=== PATIENT | male | born 1955 | race Caucasian/White ===

== ENCOUNTER → 2018-04-27 | Outpatient (CLI) | payer BC ==
[~2018-04-27] MED LIST: PROHANCE 279.3MG/ML 15ML VIAL (A9576) As Ordered; PROHANCE 279.3MG/ML 5ML VIAL (A9576) As Ordered
== END ==
LOC: M RAD 14:46
DX: N50.89 Other specified disorders of the male genital organs (principal); N40.2 Nodular prostate without lower urinary tract symptoms
CPT/HCPCS: A9576

== ENCOUNTER 2020-08-06 06:52 | Outpatient (CLI) | payer BC, MEDICARE ==
[2020-08-06] VITALS (7 sets, daily range): BP systolic 135–154; BP diastolic 71–82
[~2020-08-06] VITALS: Ht 175.3 cm; Wt 102.0 kg
[2020-08-06] MEDS ORDERED: diphenhydrAMINE 50MG/ML VIAL (J1200) IV PRN (07:05)
[2020-08-06] MEDS ORDERED: PROMETHAZINE 25 MG TAB PO PRN (07:05)
[2020-08-06] MEDS ORDERED: ONDANSETRON 4MG/2ML VIAL IV PRN (07:05)
[2020-08-06] MEDS ORDERED: methylPREDNISolone 125MG 2ML VIAL IV PRN (07:05)
[2020-08-06] MEDS ORDERED: ALBUTEROL SULFATE 2.5 MG/0.5 ML INH NEB SOLN INH PRN (07:10)
[2020-08-06] MEDS ORDERED: EPINEPHrine INJ 1 MG/ML 1ML AMP IM PRN (07:10)
[2020-08-06] MEDS ORDERED: FOLI1TAB11 PO (07:13)
[2020-08-06] MEDS ORDERED: PRED20TA PO (07:13)
[2020-08-06] MEDS ORDERED: ACET-838 PO (07:13)
[2020-08-06] MEDS ORDERED: ACETAMINOPHEN TAB 650MG DOSE (2X325MG) PO ONE (07:30)
[2020-08-06] MEDS ORDERED: IMMUNE GLOBULIN 10% 20 GM in IV 1 EA IV ONE (07:30)
[2020-08-06] MEDS ORDERED: diphenhydrAMINE 50MG/ML VIAL (J1200) IV ONE (07:30)
[2020-08-06] MEDS ORDERED: IMMUNE GLOBULIN 10% 80 GM in IV 1 EA IV ONE (07:30)
== END 2020-08-06 12:30 | disposition home or self-care (01) ==
LOC: M INFU 06:52
PROVIDERS: ATTEND Internal Medicine
DX: M33.90 Dermatopolymyositis, unspecified, organ involvement unspecified (principal)
CPT/HCPCS: 96365; 96366; J1459

== ENCOUNTER 2020-08-07 07:04 | Outpatient (CLI) | payer BC, MEDICARE ==
[2020-08-07] VITALS (8 sets, daily range): BP systolic 143–176; BP diastolic 72–93
[~2020-08-07] VITALS: Ht 175.3 cm; Wt 102.0 kg
[~2020-08-07 07:04] MED LIST changes: +ACET-838 PO; +FOLI1TAB11 PO; +PRED20TA PO; -PROHANCE 279.3MG/ML 15ML VIAL (A9576) As Ordered; -PROHANCE 279.3MG/ML 5ML VIAL (A9576) As Ordered
[2020-08-07] MEDS ORDERED: ONDANSETRON 4MG/2ML VIAL IV PRN (07:30)
[2020-08-07] MEDS ORDERED: PROMETHAZINE 25 MG TAB PO PRN (07:30)
[2020-08-07] MEDS ORDERED: diphenhydrAMINE 50MG/ML VIAL (J1200) IV PRN (07:30)
[2020-08-07] MEDS ORDERED: methylPREDNISolone 125MG 2ML VIAL IV PRN (07:30)
[2020-08-07] MEDS ORDERED: ACETAMINOPHEN TAB 650MG DOSE (2X325MG) PO ONE (07:30)
[2020-08-07] MEDS ORDERED: ALBUTEROL SULFATE 2.5 MG/0.5 ML INH NEB SOLN INH PRN (07:30)
[2020-08-07] MEDS ORDERED: IMMUNE GLOBULIN 10% 20 GM in IV 1 EA IV ONE (07:30)
[2020-08-07] MEDS ORDERED: diphenhydrAMINE 50MG/ML VIAL (J1200) IV ONE (07:30)
[2020-08-07] MEDS ORDERED: IMMUNE GLOBULIN 10% 80 GM in IV 1 EA IV ONE (07:30)
[2020-08-07] MEDS ORDERED: EPINEPHrine INJ 1 MG/ML 1ML AMP IM PRN (07:30)
== END 2020-08-07 12:45 | disposition home or self-care (01) ==
LOC: M INFU 07:04
PROVIDERS: ATTEND Internal Medicine
DX: M33.90 Dermatopolymyositis, unspecified, organ involvement unspecified (principal)
CPT/HCPCS: 96365; 96366; J1459

== ENCOUNTER 2020-09-03 07:08 | Outpatient (CLI) | payer BC, MEDICARE ==
[2020-09-03] VITALS (7 sets, daily range): BP systolic 130–167; BP diastolic 66–88
[~2020-09-03] VITALS: Ht 175.3 cm; Wt 100.0 kg
[~2020-09-03 07:08] MED LIST changes: -ACET-838 PO; +ACET32TAB PO; +diphenhydrAMINE 50MG/ML VIAL (J1200) IV PRN; +methylPREDNISolone 125MG 2ML VIAL IV PRN
[2020-09-03] MEDS ORDERED: ACETAMINOPHEN TAB 650MG DOSE (2X325MG) PO ONE (07:30)
[2020-09-03] MEDS ORDERED: diphenhydrAMINE 50MG/ML VIAL (J1200) IV ONE (07:30)
[2020-09-03] MEDS ORDERED: PROMETHAZINE 25 MG TAB PO PRN (07:30)
[2020-09-03] MEDS ORDERED: ALBUTEROL SULFATE 2.5 MG/0.5 ML INH NEB SOLN INH PRN (07:30)
[2020-09-03] MEDS ORDERED: ONDANSETRON 4MG/2ML VIAL IV PRN (07:30)
[2020-09-03] MEDS ORDERED: IMMUNE GLOBULIN 10% 20 GM in IV 1 EA IV ONE (07:30)
[2020-09-03] MEDS ORDERED: EPINEPHrine INJ 1 MG/ML 1ML AMP IM PRN (07:30)
[2020-09-03] MEDS ORDERED: IMMUNE GLOBULIN 10% 80 GM in IV 1 EA IV ONE (07:30)
== END 2020-09-03 12:50 | disposition home or self-care (01) ==
LOC: M INFU 07:08
PROVIDERS: ATTEND Internal Medicine
DX: M33.90 Dermatopolymyositis, unspecified, organ involvement unspecified (principal)
CPT/HCPCS: 96365; 96366; J1459

== ENCOUNTER 2020-09-04 07:11 | Outpatient (CLI) | payer BC, MEDICARE ==
[~2020-09-04] VITALS: Ht 175.3 cm; Wt 102.0 kg
[2020-09-04] VITALS (7 sets, daily range): BP systolic 151–181; BP diastolic 76–90
[~2020-09-04 07:11] MED LIST changes: +ALBUTEROL SULFATE 2.5 MG/0.5 ML INH NEB SOLN INH PRN; +EPINEPHrine INJ 1 MG/ML 1ML AMP IM PRN; +ONDANSETRON 4MG/2ML VIAL IV PRN; +PROMETHAZINE 25 MG TAB PO PRN
[2020-09-04] MEDS ORDERED: diphenhydrAMINE 50MG/ML VIAL (J1200) IV ONE (07:30)
[2020-09-04] MEDS ORDERED: ACETAMINOPHEN TAB 650MG DOSE (2X325MG) PO ONE (07:30)
[2020-09-04] MEDS ORDERED: IMMUNE GLOBULIN 10% 20 GM in IV 1 EA IV ONE (07:30)
[2020-09-04] MEDS ORDERED: IMMUNE GLOBULIN 10% 80 GM in IV 1 EA IV ONE (07:30)
== END 2020-09-04 13:00 | disposition home or self-care (01) ==
LOC: M INFU 07:11
PROVIDERS: ATTEND Internal Medicine
DX: M33.90 Dermatopolymyositis, unspecified, organ involvement unspecified (principal)
CPT/HCPCS: 96365; 96366; J1459

== ENCOUNTER 2020-10-01 07:21 | Outpatient (CLI) | payer BC, MEDICARE ==
[~2020-10-01] VITALS: Ht 175.3 cm; Wt 102.0 kg
[~2020-10-01 07:21] MED LIST changes: +ACETAMINOPHEN TAB 650MG DOSE (2X325MG) PO ONE; -ALBUTEROL SULFATE 2.5 MG/0.5 ML INH NEB SOLN INH PRN; -ONDANSETRON 4MG/2ML VIAL IV PRN; -PROMETHAZINE 25 MG TAB PO PRN; +diphenhydrAMINE 50MG/ML VIAL (J1200) IV ONE; -diphenhydrAMINE 50MG/ML VIAL (J1200) IV PRN; -methylPREDNISolone 125MG 2ML VIAL IV PRN
[2020-10-01] MEDS ORDERED: IMMUNE GLOBULIN 10% 20 GM in IV 1 EA IV ONE (07:30)
[2020-10-01] MEDS ORDERED: methylPREDNISolone 125MG 2ML VIAL IV PRN (07:30)
[2020-10-01] MEDS ORDERED: IMMUNE GLOBULIN 10% 80 GM in IV 1 EA IV ONE (07:30)
[2020-10-01] MEDS ORDERED: diphenhydrAMINE 50MG/ML VIAL (J1200) IV PRN (07:30)
[2020-10-01] MEDS ORDERED: ALBUTEROL SULFATE 2.5 MG/0.5 ML INH NEB SOLN INH PRN (07:30)
[2020-10-01] MEDS ORDERED: PROMETHAZINE 25 MG TAB PO PRN (07:30)
[2020-10-01] MEDS ORDERED: ONDANSETRON 4MG/2ML VIAL IV PRN (07:30)
[2020-10-01 07:43] VITALS: BP 163/90
[2020-10-01 08:15] VITALS: BP 154/86
[2020-10-01 08:45] VITALS: BP 142/78
[2020-10-01 09:15] VITALS: BP 144/84
[2020-10-01 13:30] VITALS: BP 130/95
== END 2020-10-01 13:30 | disposition home or self-care (01) ==
LOC: M INFU 07:21
PROVIDERS: ATTEND Internal Medicine
DX: M33.90 Dermatopolymyositis, unspecified, organ involvement unspecified (principal)
CPT/HCPCS: 96365; 96366; J1459

== ENCOUNTER 2020-10-02 07:16 | Outpatient (CLI) | payer BC, MEDICARE ==
[~2020-10-02] VITALS: Ht 175.3 cm; Wt 100.0 kg
[~2020-10-02 07:16] MED LIST changes: -ACETAMINOPHEN TAB 650MG DOSE (2X325MG) PO ONE; +ACETAMINOPHEN TAB 650MG DOSE (2X325MG) PO SCH; -diphenhydrAMINE 50MG/ML VIAL (J1200) IV ONE; +diphenhydrAMINE 50MG/ML VIAL (J1200) IV PRN; +methylPREDNISolone 125MG 2ML VIAL IV PRN
[2020-10-02 07:20] VITALS: BP 160/86
[2020-10-02] MEDS ORDERED: IMMUNE GLOBULIN 10% 80 GM in IV 1 EA IV ONE (07:30)
[2020-10-02] MEDS ORDERED: diphenhydrAMINE 50MG/ML VIAL (J1200) IV ONE (07:30)
[2020-10-02] MEDS ORDERED: PROMETHAZINE 25 MG TAB PO PRN (07:30)
[2020-10-02] MEDS ORDERED: ALBUTEROL SULFATE 2.5 MG/0.5 ML INH NEB SOLN INH PRN (07:30)
[2020-10-02] MEDS ORDERED: IMMUNE GLOBULIN 10% 20 GM in IV 1 EA IV ONE (07:30)
[2020-10-02] MEDS ORDERED: ONDANSETRON 4MG/2ML VIAL IV PRN (07:30)
[2020-10-02 07:56] VITALS: BP 155/78
[2020-10-02 08:33] VITALS: BP 140/81
[2020-10-02 10:32] VITALS: BP 158/82
[2020-10-02 13:36] VITALS: BP 149/87
== END 2020-10-02 13:40 | disposition home or self-care (01) ==
LOC: M INFU 07:16
PROVIDERS: ATTEND Internal Medicine
DX: M33.90 Dermatopolymyositis, unspecified, organ involvement unspecified (principal)
CPT/HCPCS: 96365; 96366; J1459

== ENCOUNTER 2020-10-13 07:38 | Outpatient (CLI) | payer BC, MEDICARE ==
[~2020-10-13] VITALS: Ht 175.3 cm; Wt 101.8 kg
[~2020-10-13 07:38] MED LIST changes: -ACETAMINOPHEN TAB 650MG DOSE (2X325MG) PO SCH; -EPINEPHrine INJ 1 MG/ML 1ML AMP IM PRN; +ZOLEDRONIC ACID 5 MG in IV 1 EA IV ONE; -diphenhydrAMINE 50MG/ML VIAL (J1200) IV PRN; -methylPREDNISolone 125MG 2ML VIAL IV PRN
[2020-10-13 07:54] VITALS: BP 165/70
[2020-10-13] MEDS ORDERED: ZOLEDRONIC ACID 5 MG in IV 1 EA IV ONE (08:00)
[2020-10-13 08:20] VITALS: BP 171/74
== END 2020-10-13 08:20 | disposition home or self-care (01) ==
LOC: M INFU 07:38
PROVIDERS: ATTEND Internal Medicine
DX: M81.0 Age-related osteoporosis without current pathological fracture (principal)
CPT/HCPCS: 96365; J3489

== ENCOUNTER 2020-10-29 07:15 | Outpatient (CLI) | payer BC, MEDICARE ==
[~2020-10-29] VITALS: Ht 175.3 cm; Wt 102.0 kg
[2020-10-29 07:15] VITALS: BP 145/75
[~2020-10-29 07:15] MED LIST changes: -ZOLEDRONIC ACID 5 MG in IV 1 EA IV ONE
[2020-10-29] MEDS ORDERED: ACETAMINOPHEN TAB 650MG DOSE (2X325MG) PO ONE (07:30)
[2020-10-29] MEDS ORDERED: diphenhydrAMINE 50MG/ML VIAL (J1200) IV ONE (07:30)
[2020-10-29] MEDS ORDERED: ONDANSETRON 4MG/2ML VIAL IV PRN (08:00)
[2020-10-29] MEDS ORDERED: PROMETHAZINE 25 MG TAB PO PRN (08:00)
[2020-10-29] MEDS ORDERED: EPINEPHrine INJ 1 MG/ML 1ML AMP IM PRN (08:00)
[2020-10-29] MEDS ORDERED: ALBUTEROL SULFATE 2.5 MG/0.5 ML INH NEB SOLN INH PRN (08:00)
[2020-10-29] MEDS ORDERED: IMMUNE GLOBULIN 10% 20 GM in IV 1 EA IV ONE (08:00)
[2020-10-29] MEDS ORDERED: diphenhydrAMINE 50MG/ML VIAL (J1200) IV PRN (08:00)
[2020-10-29] MEDS ORDERED: IMMUNE GLOBULIN 10% 80 GM in IV 1 EA IV ONE (08:00)
[2020-10-29] MEDS ORDERED: methylPREDNISolone 125MG 2ML VIAL IV PRN (08:00)
[2020-10-29 08:15] VITALS: BP 138/71
[2020-10-29 08:44] VITALS: BP 134/73
[2020-10-29 10:15] VITALS: BP 128/68
[2020-10-29 13:17] VITALS: BP 155/81
== END 2020-10-29 13:10 | disposition home or self-care (01) ==
LOC: M INFU 07:15
PROVIDERS: ATTEND Internal Medicine
DX: M33.10 Other dermatomyositis, organ involvement unspecified (principal)
CPT/HCPCS: 96365; 96366; J1459

== ENCOUNTER 2020-10-30 07:16 | Outpatient (CLI) | payer BC, MEDICARE ==
[~2020-10-30] VITALS: Ht 175.3 cm; Wt 102.0 kg
[2020-10-30 07:20] VITALS: BP 157/76
[2020-10-30] MEDS ORDERED: diphenhydrAMINE 50MG/ML VIAL (J1200) IV ONE (07:30)
[2020-10-30] MEDS ORDERED: ACETAMINOPHEN TAB 650MG DOSE (2X325MG) PO ONE (07:30)
[2020-10-30] MEDS ORDERED: methylPREDNISolone 125MG 2ML VIAL IV PRN (07:30)
[2020-10-30] MEDS ORDERED: EPINEPHrine INJ 1 MG/ML 1ML AMP IM PRN (07:30)
[2020-10-30] MEDS ORDERED: PROMETHAZINE 25 MG TAB PO PRN (07:30)
[2020-10-30] MEDS ORDERED: IMMUNE GLOBULIN 10% 80 GM in IV 1 EA IV ONE (07:30)
[2020-10-30] MEDS ORDERED: ONDANSETRON 4MG/2ML VIAL IV PRN (07:30)
[2020-10-30] MEDS ORDERED: ALBUTEROL SULFATE 2.5 MG/0.5 ML INH NEB SOLN INH PRN (07:30)
[2020-10-30] MEDS ORDERED: diphenhydrAMINE 50MG/ML VIAL (J1200) IV PRN (07:30)
[2020-10-30] MEDS ORDERED: IMMUNE GLOBULIN 10% 20 GM in IV 1 EA IV ONE (07:30)
[2020-10-30 08:00] VITALS: BP 159/77
[2020-10-30 08:30] VITALS: BP 155/73
[2020-10-30 08:53] VITALS: BP 150/68
[2020-10-30 10:10] VITALS: BP 147/76
[2020-10-30 12:49] VITALS: BP 148/88
== END 2020-10-30 12:50 | disposition home or self-care (01) ==
LOC: M INFU 07:16
PROVIDERS: ATTEND Internal Medicine
DX: M33.10 Other dermatomyositis, organ involvement unspecified (principal)
CPT/HCPCS: 96365; 96366; J1459

== ENCOUNTER 2020-11-26 07:23 | Outpatient (CLI) | payer BC, MEDICARE ==
[2020-11-26] VITALS (7 sets, daily range): BP systolic 136–167; BP diastolic 68–81
[~2020-11-26] VITALS: Ht 175.3 cm; Wt 102.0 kg
[~2020-11-26 07:23] MED LIST changes: +ACETAMINOPHEN TAB 650MG DOSE (2X325MG) PO ONE; +PROMETHAZINE 25 MG TAB PO PRN; +diphenhydrAMINE 50MG/ML VIAL (J1200) IV ONE; +diphenhydrAMINE 50MG/ML VIAL (J1200) IV PRN; +methylPREDNISolone 125MG 2ML VIAL IV PRN
[2020-11-26] MEDS ORDERED: IMMUNE GLOBULIN 10% 80 GM in IV 1 EA IV ONE (07:30)
[2020-11-26] MEDS ORDERED: IMMUNE GLOBULIN 10% 20 GM in IV 1 EA IV ONE (07:30)
[2020-11-26] MEDS ORDERED: EPINEPHrine INJ 1 MG/ML 1ML AMP IM PRN (07:30)
[2020-11-26] MEDS ORDERED: ONDANSETRON 4MG/2ML VIAL IV PRN (07:30)
[2020-11-26] MEDS ORDERED: ALBUTEROL SULFATE 2.5 MG/0.5 ML INH NEB SOLN INH PRN (08:00)
== END 2020-11-26 13:20 | disposition home or self-care (01) ==
LOC: M INFU 07:23
PROVIDERS: ATTEND Internal Medicine
DX: M33.10 Other dermatomyositis, organ involvement unspecified (principal)
CPT/HCPCS: 96365; 96366; J1459

== ENCOUNTER 2020-11-27 07:20 | Outpatient (CLI) | payer BC, MEDICARE ==
[2020-11-27] VITALS (8 sets, daily range): BP systolic 144–177; BP diastolic 76–91
[~2020-11-27] VITALS: Ht 175.3 cm; Wt 102.0 kg
[~2020-11-27 07:20] MED LIST changes: -ACETAMINOPHEN TAB 650MG DOSE (2X325MG) PO ONE; -PROMETHAZINE 25 MG TAB PO PRN; -diphenhydrAMINE 50MG/ML VIAL (J1200) IV ONE; -diphenhydrAMINE 50MG/ML VIAL (J1200) IV PRN; -methylPREDNISolone 125MG 2ML VIAL IV PRN
[2020-11-27] MEDS ORDERED: ALBUTEROL SULFATE 2.5 MG/0.5 ML INH NEB SOLN INH PRN (08:00)
[2020-11-27] MEDS ORDERED: IMMUNE GLOBULIN 10% 80 GM in IV 1 EA IV ONE (08:00)
[2020-11-27] MEDS ORDERED: PROMETHAZINE 25 MG TAB PO PRN (08:00)
[2020-11-27] MEDS ORDERED: diphenhydrAMINE 50MG/ML VIAL (J1200) IV ONE (08:00)
[2020-11-27] MEDS ORDERED: ACETAMINOPHEN TAB 650MG DOSE (2X325MG) PO ONE (08:00)
[2020-11-27] MEDS ORDERED: ONDANSETRON 4MG/2ML VIAL IV PRN (08:00)
[2020-11-27] MEDS ORDERED: IMMUNE GLOBULIN 10% 20 GM in IV 1 EA IV ONE (08:00)
[2020-11-27] MEDS ORDERED: diphenhydrAMINE 50MG/ML VIAL (J1200) IV PRN (08:00)
[2020-11-27] MEDS ORDERED: methylPREDNISolone 125MG 2ML VIAL IV PRN (08:00)
[2020-11-27] MEDS ORDERED: EPINEPHrine INJ 1 MG/ML 1ML AMP IM PRN (08:00)
== END 2020-11-27 12:45 | disposition home or self-care (01) ==
LOC: M INFU 07:20
PROVIDERS: ATTEND Internal Medicine
DX: M33.10 Other dermatomyositis, organ involvement unspecified (principal)
CPT/HCPCS: 96365; 96366; J1459

== ENCOUNTER 2020-12-24 07:16 | Outpatient (CLI) | payer BC, MEDICARE ==
[~2020-12-24] VITALS: Ht 175.3 cm; Wt 102.0 kg
[2020-12-24] VITALS (7 sets, daily range): BP systolic 135–160; BP diastolic 68–81
[2020-12-24] MEDS ORDERED: IMMUNE GLOBULIN 10% 80 GM in IV 1 EA IV ONE (07:30)
[2020-12-24] MEDS ORDERED: diphenhydrAMINE 50MG/ML VIAL (J1200) IV ONE (07:30)
[2020-12-24] MEDS ORDERED: diphenhydrAMINE 50MG/ML VIAL (J1200) IV PRN (07:30)
[2020-12-24] MEDS ORDERED: ONDANSETRON 4MG/2ML VIAL IV PRN (07:30)
[2020-12-24] MEDS ORDERED: ALBUTEROL SULFATE 2.5 MG/0.5 ML INH NEB SOLN INH PRN (07:30)
[2020-12-24] MEDS ORDERED: PROMETHAZINE 25 MG TAB PO PRN (07:30)
[2020-12-24] MEDS ORDERED: ACETAMINOPHEN TAB 650MG DOSE (2X325MG) PO ONE (07:30)
[2020-12-24] MEDS ORDERED: EPINEPHrine INJ 1 MG/ML 1ML AMP IM PRN (07:30)
[2020-12-24] MEDS ORDERED: IMMUNE GLOBULIN 10% 20 GM in IV 1 EA IV ONE (07:30)
[2020-12-24] MEDS ORDERED: methylPREDNISolone 125MG 2ML VIAL IV PRN (07:30)
[2020-12-25] MEDS ORDERED: METH25IN12 SC (07:29)
[2020-12-25] MEDS ORDERED: PRED1TABL PO (07:29)
== END 2020-12-24 12:45 | disposition home or self-care (01) ==
LOC: M INFU 07:16
PROVIDERS: ATTEND Internal Medicine
DX: M33.10 Other dermatomyositis, organ involvement unspecified (principal)
CPT/HCPCS: 96365; 96366; J1459

== ENCOUNTER 2020-12-25 07:13 | Outpatient (CLI) | payer BC, MEDICARE ==
[2020-12-25] VITALS (7 sets, daily range): BP systolic 119–187; BP diastolic 69–88
[~2020-12-25] VITALS: Ht 175.3 cm; Wt 102.0 kg
[~2020-12-25 07:13] MED LIST changes: +ALBUTEROL SULFATE 2.5 MG/0.5 ML INH NEB SOLN INH PRN; +EPINEPHrine INJ 1 MG/ML 1ML AMP IM PRN; +methylPREDNISolone 125MG 2ML VIAL IV PRN
[2020-12-25] MEDS ORDERED: METH25IN12 SC (07:29)
[2020-12-25] MEDS ORDERED: PRED1TABL PO (07:29)
[2020-12-25] MEDS ORDERED: ACETAMINOPHEN TAB 650MG DOSE (2X325MG) PO ONE (07:30)
[2020-12-25] MEDS ORDERED: diphenhydrAMINE 50MG/ML VIAL (J1200) IV PRN (07:30)
[2020-12-25] MEDS ORDERED: ONDANSETRON 4MG/2ML VIAL IV PRN (07:30)
[2020-12-25] MEDS ORDERED: IMMUNE GLOBULIN 10% 80 GM in IV 1 EA IV ONE (07:30)
[2020-12-25] MEDS ORDERED: diphenhydrAMINE 50MG/ML VIAL (J1200) IV ONE (07:30)
[2020-12-25] MEDS ORDERED: PROMETHAZINE 25 MG TAB PO PRN (07:30)
[2020-12-25] MEDS ORDERED: IMMUNE GLOBULIN 10% 20 GM in IV 1 EA IV ONE (07:30)
== END 2020-12-25 12:40 | disposition home or self-care (01) ==
LOC: M INFU 07:13
PROVIDERS: ATTEND Internal Medicine
DX: M33.10 Other dermatomyositis, organ involvement unspecified (principal)
CPT/HCPCS: 96365; 96366; J1459

== ENCOUNTER 2021-01-21 07:26 | Outpatient (CLI) | payer BC, MEDICARE ==
[2021-01-21] VITALS (8 sets, daily range): BP systolic 158–179; BP diastolic 77–89
[~2021-01-21] VITALS: Ht 175.3 cm; Wt 100.0 kg
[~2021-01-21 07:26] MED LIST changes: -ALBUTEROL SULFATE 2.5 MG/0.5 ML INH NEB SOLN INH PRN; -EPINEPHrine INJ 1 MG/ML 1ML AMP IM PRN; +METH25IN12 SC; +PRED1TABL PO; +PROMETHAZINE 25 MG TAB PO PRN; -methylPREDNISolone 125MG 2ML VIAL IV PRN
[2021-01-21] MEDS ORDERED: IMMUNE GLOBULIN 10% 20 GM in IV 1 EA IV ONE (07:30)
[2021-01-21] MEDS ORDERED: ONDANSETRON 4MG/2ML VIAL IV PRN (07:30)
[2021-01-21] MEDS ORDERED: IMMUNE GLOBULIN 10% 80 GM in IV 1 EA IV ONE (07:30)
[2021-01-21] MEDS ORDERED: EPINEPHrine INJ 1 MG/ML 1ML AMP IM PRN (07:30)
[2021-01-21] MEDS ORDERED: methylPREDNISolone 125MG 2ML VIAL IV PRN (07:30)
[2021-01-21] MEDS ORDERED: diphenhydrAMINE 50MG/ML VIAL (J1200) IV PRN (07:30)
[2021-01-21] MEDS ORDERED: ACETAMINOPHEN TAB 650MG DOSE (2X325MG) PO ONE (07:30)
[2021-01-21] MEDS ORDERED: ALBUTEROL SULFATE 2.5 MG/0.5 ML INH NEB SOLN INH PRN (07:30)
[2021-01-21] MEDS ORDERED: diphenhydrAMINE 50MG/ML VIAL (J1200) IV ONE (07:30)
== END 2021-01-21 13:00 | disposition home or self-care (01) ==
LOC: M INFU 07:26
PROVIDERS: ATTEND Internal Medicine
DX: M33.10 Other dermatomyositis, organ involvement unspecified (principal)
CPT/HCPCS: 96365; 96366; J1459

== ENCOUNTER 2021-01-22 07:05 | Outpatient (CLI) | payer BC, MEDICARE ==
[~2021-01-22] VITALS: Ht 175.3 cm; Wt 102.0 kg
[~2021-01-22 07:05] MED LIST changes: -PROMETHAZINE 25 MG TAB PO PRN
[2021-01-22 07:10] VITALS: BP 155/89
[2021-01-22] MEDS ORDERED: IMMUNE GLOBULIN 10% 80 GM in IV 1 EA IV ONE (07:30)
[2021-01-22] MEDS ORDERED: ACETAMINOPHEN TAB 650MG DOSE (2X325MG) PO ONE (07:30)
[2021-01-22] MEDS ORDERED: PROMETHAZINE 25 MG TAB PO PRN (07:30)
[2021-01-22] MEDS ORDERED: ALBUTEROL SULFATE 2.5 MG/0.5 ML INH NEB SOLN INH PRN (07:30)
[2021-01-22] MEDS ORDERED: methylPREDNISolone 125MG 2ML VIAL IV PRN (07:30)
[2021-01-22] MEDS ORDERED: diphenhydrAMINE 50MG/ML VIAL (J1200) IV PRN (07:30)
[2021-01-22] MEDS ORDERED: EPINEPHrine INJ 1 MG/ML 1ML AMP IM PRN (07:30)
[2021-01-22] MEDS ORDERED: diphenhydrAMINE 50MG/ML VIAL (J1200) IV ONE (07:30)
[2021-01-22] MEDS ORDERED: ONDANSETRON 4MG/2ML VIAL IV PRN (07:30)
[2021-01-22] MEDS ORDERED: IMMUNE GLOBULIN 10% 20 GM in IV 1 EA IV ONE (07:30)
[2021-01-22 08:00] VITALS: BP 164/87
[2021-01-22 08:30] VITALS: BP 154/88
[2021-01-22 08:57] VITALS: BP 156/77
[2021-01-22 10:00] VITALS: BP 153/74
[2021-01-22 11:00] VITALS: BP 164/80
== END 2021-01-22 13:00 | disposition home or self-care (01) ==
LOC: M INFU 07:05
PROVIDERS: ATTEND Internal Medicine
DX: M33.90 Dermatopolymyositis, unspecified, organ involvement unspecified (principal)
CPT/HCPCS: 96365; 96366; J1459

== ENCOUNTER 2021-02-18 07:35 | Outpatient (CLI) | payer BC, MEDICARE ==
[2021-02-18] VITALS (8 sets, daily range): BP systolic 137–180; BP diastolic 74–84
[~2021-02-18] VITALS: Ht 175.3 cm; Wt 102.0 kg
[~2021-02-18 07:35] MED LIST changes: +ALBUTEROL SULFATE 2.5 MG/0.5 ML INH NEB SOLN INH PRN; +EPINEPHrine INJ 1 MG/ML 1ML AMP IM PRN; +diphenhydrAMINE 50MG/ML VIAL (J1200) IV PRN; +methylPREDNISolone 125MG 2ML VIAL IV PRN
[2021-02-18] MEDS ORDERED: NS 1,000 ML IV SCH (08:00)
[2021-02-18] MEDS ORDERED: ACETAMINOPHEN TAB 650MG DOSE (2X325MG) PO ONE (08:00)
[2021-02-18] MEDS ORDERED: IMMUNE GLOBULIN 10% 20 GM in IV 1 EA IV ONE (08:00)
[2021-02-18] MEDS ORDERED: IMMUNE GLOBULIN 10% 80 GM in IV 1 EA IV ONE (08:00)
[2021-02-18] MEDS ORDERED: diphenhydrAMINE 50MG/ML VIAL (J1200) IV ONE (08:00)
== END 2021-02-18 13:15 | disposition home or self-care (01) ==
LOC: M INFU 07:35
PROVIDERS: ATTEND Internal Medicine
DX: M33.90 Dermatopolymyositis, unspecified, organ involvement unspecified (principal)
CPT/HCPCS: 96365; 96366; J1459

== ENCOUNTER 2021-02-19 09:34 | Outpatient (CLI) | payer BC, MEDICARE ==
[~2021-02-19] VITALS: Ht 175.3 cm; Wt 102.0 kg
[2021-02-19] VITALS (7 sets, daily range): BP systolic 149–179; BP diastolic 74–85
[2021-02-19] MEDS ORDERED: NS 1,000 ML IV SCH (10:00)
[2021-02-19] MEDS ORDERED: IMMUNE GLOBULIN 10% 80 GM in IV 1 EA IV ONE (10:00)
[2021-02-19] MEDS ORDERED: ACETAMINOPHEN 650MG PO PRIOR TO INFUSION PO ONE (10:00)
[2021-02-19] MEDS ORDERED: diphenhydrAMINE 25MG IV PRIOR TO INFUSION IV ONE (10:00)
[2021-02-19] MEDS ORDERED: IMMUNE GLOBULIN 10% 20 GM in IV 1 EA IV ONE (10:00)
== END 2021-02-19 15:15 | disposition home or self-care (01) ==
LOC: M INFU 09:34
PROVIDERS: ATTEND Internal Medicine
DX: M33.90 Dermatopolymyositis, unspecified, organ involvement unspecified (principal)
CPT/HCPCS: 96365; 96366; J1459

== ENCOUNTER 2021-03-25 07:29 | Outpatient (CLI) | payer BC, MEDICARE ==
[~2021-03-25] VITALS: Ht 175.3 cm; Wt 100.0 kg
[2021-03-25] VITALS (8 sets, daily range): BP systolic 155–178; BP diastolic 79–89
[~2021-03-25 07:29] MED LIST changes: -ALBUTEROL SULFATE 2.5 MG/0.5 ML INH NEB SOLN INH PRN; -EPINEPHrine INJ 1 MG/ML 1ML AMP IM PRN; -diphenhydrAMINE 50MG/ML VIAL (J1200) IV PRN; -methylPREDNISolone 125MG 2ML VIAL IV PRN
[2021-03-25] MEDS ORDERED: ALBUTEROL SULFATE (2.5MG/0.5ML) NEB INH PRN (07:30)
[2021-03-25] MEDS ORDERED: methylPREDNISolone (125 MG/2 ML) IV IV PRN (07:30)
[2021-03-25] MEDS ORDERED: diphenhydrAMINE (50MG/ML) IV IV PRN (07:30)
[2021-03-25] MEDS ORDERED: EPINEPHrine (1MG/ML) IV IM PRN (07:30)
[2021-03-25] MEDS ORDERED: IMMUNE GLOBULIN 10% 80 GM in IV 1 EA IV ONE (08:00)
[2021-03-25] MEDS ORDERED: ACETAMINOPHEN 650 MG PO PO ONE (08:00)
[2021-03-25] MEDS ORDERED: IMMUNE GLOBULIN 10% 20 GM in IV 1 EA IV ONE (08:00)
[2021-03-25] MEDS ORDERED: diphenhydrAMINE 25 MG IV IV ONE (08:00)
== END 2021-03-25 13:00 | disposition home or self-care (01) ==
LOC: M INFU 07:29
PROVIDERS: ATTEND Internal Medicine
DX: M33.90 Dermatopolymyositis, unspecified, organ involvement unspecified (principal)
CPT/HCPCS: 96365; 96366; J1459

== ENCOUNTER 2021-03-26 07:29 | Outpatient (CLI) | payer BC, MEDICARE ==
[~2021-03-26] VITALS: Ht 175.3 cm; Wt 102.0 kg
[2021-03-26] VITALS (7 sets, daily range): BP systolic 149–165; BP diastolic 64–85
[~2021-03-26 07:29] MED LIST changes: +ALBUTEROL SULFATE 2.5 MG/0.5 ML INH NEB SOLN INH PRN; +EPINEPHrine INJ 1 MG/ML 1ML AMP IM PRN; +diphenhydrAMINE 50MG/ML VIAL (J1200) IV PRN; +methylPREDNISolone 125MG 2ML VIAL IV PRN
[2021-03-26] MEDS ORDERED: IMMUNE GLOBULIN 10% 20 GM in IV 1 EA IV ONE (08:00)
[2021-03-26] MEDS ORDERED: diphenhydrAMINE 50MG/ML VIAL (J1200) IV ONE (08:00)
[2021-03-26] MEDS ORDERED: ACETAMINOPHEN TAB 650MG DOSE (2X325MG) PO ONE (08:00)
[2021-03-26] MEDS ORDERED: IMMUNE GLOBULIN 10% 80 GM in IV 1 EA IV ONE (08:00)
[2021-03-26] MEDS ORDERED: NS 1,000 ML IV SCH (08:00)
== END 2021-03-26 13:00 | disposition home or self-care (01) ==
LOC: M INFU 07:29
PROVIDERS: ATTEND Internal Medicine
DX: M33.10 Other dermatomyositis, organ involvement unspecified (principal)
CPT/HCPCS: 96365; 96366; J1459

== ENCOUNTER 2021-10-14 10:16 | Outpatient (CLI) | payer MEDICARE, BC ==
[~2021-10-14] VITALS: Ht 175.3 cm; Wt 100.0 kg
[~2021-10-14 10:16] MED LIST changes: -ALBUTEROL SULFATE 2.5 MG/0.5 ML INH NEB SOLN INH PRN; -EPINEPHrine INJ 1 MG/ML 1ML AMP IM PRN; +ZOLEDRONIC ACID 5 MG in IV 1 EA IV ONE; -diphenhydrAMINE 50MG/ML VIAL (J1200) IV PRN; -methylPREDNISolone 125MG 2ML VIAL IV PRN
[2021-10-14 10:25] VITALS: BP 154/74
[2021-10-14 11:05] VITALS: BP 145/80
== END 2021-10-14 11:05 | disposition home or self-care (01) ==
LOC: M INFU 10:16
PROVIDERS: ATTEND Internal Medicine
DX: M33.10 Other dermatomyositis, organ involvement unspecified (principal)
CPT/HCPCS: 96365; J3489

== ENCOUNTER 2022-10-17 08:15 | Outpatient (CLI) | payer MEDICARE, BC ==
[~2022-10-17] VITALS: Ht 175.3 cm; Wt 100.0 kg
[~2022-10-17 08:15] MED LIST changes: -ZOLEDRONIC ACID 5 MG in IV 1 EA IV ONE
[2022-10-17 08:30] VITALS: BP 170/84
[2022-10-17] MEDS ORDERED: ZOLEDRONIC ACID 5 MG in IV 1 EA IV ONE ×4 (09:00)
[2022-10-17 09:27] VITALS: BP 144/77
== END 2022-10-17 09:30 | disposition home or self-care (01) ==
LOC: M INFU 08:15
PROVIDERS: ATTEND Internal Medicine
DX: M81.0 Age-related osteoporosis without current pathological fracture (principal)
CPT/HCPCS: 96365; J3489

== ENCOUNTER → 2023-03-02 | Outpatient (REF) | payer MEDICARE, BC | LOC: M SFHCRHEU 11:28 | PROVIDERS: ATTEND Internal Medicine | DX: M33.90 Dermatopolymyositis, unspecified, organ involvement unspecified (principal) ==

== ENCOUNTER 2023-10-18 14:33 | Outpatient (CLI) | payer MEDICARE ==
[~2023-10-18] VITALS: Ht 175.3 cm; Wt 100.0 kg
[2023-10-18 14:40] VITALS: BP 155/93; O2SAT 98
[2023-10-18] MEDS: ZOLEDRONIC ACID 5 MG in IV 1 EA IV ONE (14:54)
[2023-10-18 15:28] VITALS: BP 140/85; O2SAT 96
== END 2023-10-18 15:30 ==
LOC: M INFU 14:33
PROVIDERS: ATTEND Internal Medicine
DX: M81.0 Age-related osteoporosis without current pathological fracture (principal)
CPT/HCPCS: 96365; J3489